=== PATIENT | female | born 1965 | race Caucasian/White ===

== ENCOUNTER 2017-07-19 11:09 | Outpatient (CLI) | payer OTHER ==
[~2017-07-19 11:09] MED LIST: NEURONTIN300 MG; TYLENOL325 MG PO; XANAX1 MG
== END 2017-07-19 11:18 | disposition home or self-care (01) ==
LOC: SONOGRAMA 11:09 → RAD 11:09 → SONOGRAMA 11:18 → MAMO-SONO 07-20 08:15
DX: R10.9 Unspecified abdominal pain (principal); M25.569 Pain in unspecified knee; M25.559 Pain in unspecified hip

== ENCOUNTER 2020-02-19 13:02 | Outpatient (CLI) | payer OTHER | END 2020-02-19 13:11 | disposition home or self-care (01) | LOC: MAMO-SONO 13:02 | PROVIDERS: ATTEND Specialist | DX: Z12.31 Encounter for screening mammogram for malignant neoplasm of breast (principal); N64.59 Other signs and symptoms in breast; N60.21 Fibroadenosis of right breast; N60.22 Fibroadenosis of left breast ==

== ENCOUNTER 2023-04-29 17:11 | Emergency (ER) | payer OTHER ==
[~2023-04-29] VITALS: Ht 160 cm; Wt 58.1 kg
[2023-04-29] MEDS ORDERED: MEDROL2 MG PO (17:17)
[2023-04-29] MEDS ORDERED: KETOROLAC TROMETHAMINE 30 MG VIAL IV ONE ×2 (18:15→21:30)
[2023-04-29] MEDS ORDERED: 0.9 % SODIUM CHLORIDE 1,000 ML IV SCH (18:15)
[2023-04-29 18:57] LABS: HEMATOCRIT 42.6 % (36.0-45.00); HEMOGLOBIN 14.2 g/dL (12.0-15.00); MEAN CELL VOLUME 93.9 fL (80.00-100.00); MEAN CORPUSCULAR HEMOGLOBIN 31.4 pg (27.00-32.0); MEAN CORPUSCULAR HGB CONC 33.4 g/dl (32.0-36.0); PLATELET COUNT 429 K/uL (150-450); RED BLOOD COUNT 4.53 M/uL (4.00-6.00); RED CELL DISTRIBUTION WIDTH 13.5 % (11.5-14.5)
[2023-04-29 19:52] LABS: ALBUMIN 4.8 gm/dL (3.4-5.0); BILIRUBIN TOTAL 0.42 mg/dL (0.3-1.2); CALCIUM 10.4 mg/dL (8.5-10.1); CREATININE SERUM 0.73 mg/dL (0.55-1.02); GFR 82.77; GLOBULINA 4.1 G/DL (2.4-3.5); POTASSIUM 4.03 mEq/L (3.5-5.1); TOTAL PROTEIN 8.9 gm/dL (6.4-8.2)
[2023-04-29 20:38] LABS: PH,URINE 7.5 (5.0-8.0); URINE APPEARANCE Cloudy; URINE BILIRRUBIN Negative (NEGATIVE); URINE BLOOD Negative; URINE COLOR Yellow; URINE GLUCOSE Negative (NEGATIVE); URINE LEUKOCYTE Moderate; URINE NITRATE Negative; URINE PROTEIN Negative (NEGATIVE); URINE UROBILINOGEN 0.2 E.U./dl
[2023-04-29 20:42] LABS: URINE BACTERIA 4796.5 uL (0.0-1933); URINE EPITHELIAL CELLS 92.7 uL (0.0-38.8); URINE RBC 5.7 uL (0.0-20.8); URINE WBC 255.7 uL (0.0-23.2)
[2023-04-29] MEDS ORDERED: CEFTRIAXONE SODIUM 2,000 MG VIAL IV ONE (20:45)
[2023-04-29] MEDS ORDERED: NITROFURANTOIN100 MG PO (21:17)
[2023-04-29] MEDS ORDERED: DICLOFENAC SODI75 MG PO (21:30)
== END 2023-04-29 22:02 | disposition home or self-care (01) ==
LOC: ER 17:11
PROVIDERS: General Practice
DX: N39.0 Urinary tract infection, site not specified (principal); N20.0 Calculus of kidney

== ENCOUNTER 2023-04-30 12:58 | Outpatient (CLI) | payer OTHER ==
[~2023-04-30 12:58] MED LIST changes: +DICLOFENAC SODI75 MG PO; +MEDROL2 MG PO; +NITROFURANTOIN100 MG PO
== END 2023-04-30 13:09 | disposition home or self-care (01) ==
LOC: MRI 12:58
PROVIDERS: ATTEND General Practice
DX: M54.50 Low back pain, unspecified (principal)
CPT/HCPCS: 72146; 72148

== ENCOUNTER 2023-05-24 13:36 | Outpatient (CLI) | payer OTHER | END 2023-05-24 13:51 | disposition home or self-care (01) | LOC: TOM 13:36 | DX: N20.0 Calculus of kidney (principal) ==